=== PATIENT | male | born 1985 | race Caucasian/White ===

== ENCOUNTER 2021-01-11 07:12 | Emergency (ER) | payer OTHER ==
[~2021-01-11 07:12] MED LIST: DOXYCYCLINE MO100 MG PO; IBUPROFEN800 MG PO; MEDROL 4MG DOSEP4 MG PO; PERCOCET 5-3251 EACH PO
[2021-01-11] MEDS ORDERED: MEDROL 4MG DOSEP4 MG PO (08:43)
[2021-01-11] MEDS ORDERED: CYCLOBENZAPRINE10 MG PO (08:43)
[2021-01-11] MEDS ORDERED: IBUPROFEN600 MG PO (08:43)
== END 2021-01-11 08:58 | disposition home or self-care (01) ==
LOC: FER 07:12
DX: M62.830 Muscle spasm of back (principal); J02.9 Acute pharyngitis, unspecified; F17.210 Nicotine dependence, cigarettes, uncomplicated
CPT/HCPCS: 73030; 87880

== ENCOUNTER 2021-01-19 07:25 | Emergency (ER) | payer OTHER ==
[~2021-01-19 07:25] MED LIST changes: +CYCLOBENZAPRINE10 MG PO; +IBUPROFEN600 MG PO
[2021-01-19] MEDS ORDERED: MOBIC7.5 MG PO (07:50)
== END 2021-01-19 08:04 | disposition home or self-care (01) ==
LOC: FER 07:25
DX: M19.011 Primary osteoarthritis, right shoulder (principal); Z23 Encounter for immunization
CPT/HCPCS: 99283

== ENCOUNTER 2021-03-22 01:03 | Emergency (ER) | payer OTHER ==
[~2021-03-22 01:03] MED LIST changes: +MOBIC7.5 MG PO
== END 2021-03-22 01:52 | disposition home or self-care (01) ==
LOC: FER 01:03
DX: R19.7 Diarrhea, unspecified (principal); F17.210 Nicotine dependence, cigarettes, uncomplicated
CPT/HCPCS: 99283

== ENCOUNTER 2021-07-22 21:10 | Emergency (ER) | payer OTHER | END 2021-07-22 23:08 | disposition home or self-care (01) | LOC: FER 21:10 | DX: B34.9 Viral infection, unspecified (principal); F17.200 Nicotine dependence, unspecified, uncomplicated | CPT/HCPCS: 87880; 99284; J1885 ==

== ENCOUNTER 2021-10-16 23:56 | Emergency (ER) | payer OTHER ==
[2021-10-17 01:02] LABS: CORONAVIRUS 2019 SARS-COV-2 NEGATIVE (NEGATIVE); INFLUENZA A NAA NEGATIVE (NEGATIVE)
== END 2021-10-17 05:14 | disposition home or self-care (01) ==
LOC: FER 23:56
PROVIDERS: Emergency Medicine Emergency Medical Services
DX: B34.9 Viral infection, unspecified (principal); J45.909 Unspecified asthma, uncomplicated; F17.210 Nicotine dependence, cigarettes, uncomplicated; Z20.822 Contact with and (suspected) exposure to COVID-19
CPT/HCPCS: 99283; U0002

== ENCOUNTER 2022-02-25 18:19 | Emergency (ER) | payer OTHER ==
[2022-02-25] MEDS ORDERED: NAPROXEN500 MG PO (22:10)
== END 2022-02-25 22:20 | disposition home or self-care (01) ==
LOC: FER 18:19
DX: M77.8 Other enthesopathies, not elsewhere classified (principal); F17.210 Nicotine dependence, cigarettes, uncomplicated
CPT/HCPCS: 73030; 96372; J1100; J1885

== ENCOUNTER 2022-05-23 21:46 | Emergency (ER) | payer OTHER ==
[~2022-05-23 21:46] MED LIST changes: +NAPROXEN500 MG PO
== END 2022-05-23 22:50 | disposition home or self-care (01) ==
LOC: FER 21:46
DX: S05.02XA Injury of conjunctiva and corneal abrasion without foreign body, left eye, initial encounter (principal); X58.XXXA Exposure to other specified factors, initial encounter; Z28.310 Unvaccinated for COVID-19
CPT/HCPCS: 99283